=== PATIENT | male | born 2000 | race African-American/Black ===

== ENCOUNTER 2021-05-26 18:00 | Emergency (ER) | payer OTHER ==
[~2021-05-26] VITALS: Ht 177.8 cm; Wt 90.6 kg
[2021-05-26] MEDS ORDERED: ONDANSETRON PF 4 MG/2 ML VIAL. IVP ONE (18:45)
[2021-05-26] MEDS ORDERED: METOCLOPRAMIDE HCL 10 MG/2 ML VIAL. IVP ONE (18:45)
[2021-05-26] MEDS ORDERED: IV NORMAL SALINE 1,000ML 1,000 ML IV ONE (18:45)
[2021-05-26 19:08] VITALS: BP 115/74
[2021-05-26] MEDS ORDERED: ONDANSETRON 4MG ODT 4TABLET STARTPACK. PO ONE ×2 (19:37→19:45)
--- NOTE | 2021-05-26 19:44 | PHYS DOC ---
Past History Past Surgical History: No Surgical History (JORGE LUIS TOMLINSON APRN) Additional Smoking Information: vaper Alcohol Use: Occasionally (JORGE LUIS TOMLINSON APRN) Adult General Chief Complaint Chief Complaint: NAUSEA/VOMITING/DIARRHEA HPI HPI Patient is a 21-year-old male who presents emergency department complaining of nausea vomiting and diarrhea after what he suspects was a bad Polish food he ate last night. Patient denies seeing any blood in his stool or his vomitus, denies urinary tract infection type signs and symptoms, denies abdominal pain or discomfort at this time, denies recent fever or chills, denies chest pains shortness of breath cough or congestion. Patient denies other physical complaints or physical concerns. (JORGE LUIS TOMLINSON APRN) Review of Systems Review of Systems 14 body systems of review of systems have been reviewed. See HPI for pertinent positives and negative responses, otherwise all other systems are negative, nonpertinent or noncontributory. Constitutional: Negative except as outlined in HPI above. Skin: Negative except as outlined in HPI above. Eyes: Negative except as outlined in HPI above. HENT: Negative except as outlined in HPI above. Respiratory: Negative except as outlined in HPI above. Cardiovascular: Negative except as outlined in HPI above. GI: Negative except as outlined in HPI above. : Negative except as outlined in HPI above. Musculoskeletal: Negative except as outlined in HPI above. Integument: Negative except as outlined in HPI above. Neurologic: Negative except as outlined in HPI above. Endocrine: Negative except as outlined in HPI above. Lymphatic: Negative except as outlined in HPI above. Psychiatric: Negative except as outlined in HPI above. (JORGE LUIS TOMLINSON APRN) Current Medications Current Medications Current Medications Medications (Trade) Dose Ordered Sig/Linda Start Time Stop Time Status Last Admin Dose Admin Metoclopramide HCl (Reglan Vial) 10 mg 1X ONCE 05/26/21 18:45 05/26/21 18:46 DC 05/26/21 18:39 10 MG Ondansetron HCl (Starter Pack - Zofran Odt) 1 startpack STK-MED ONCE 05/26/21 19:37 05/26/21 19:40 DC Ondansetron HCl (Zofran) 8 mg 1X ONCE 05/26/21 18:45 05/26/21 18:46 DC 05/26/21 18:39 8 MG Sodium Chloride 1,000 ml @ 1,000 mls/hr 1X ONCE 05/26/21 18:45 05/26/21 19:40 DC 05/26/21 18:39 1,000 MLS/HR (JORGE LUIS TOMLINSON APRN) Allergies Allergies Allergies Coded Allergies Type Severity Reaction Last Updated Verified No Known Drug Allergies 05/26/21 No (JORGE LUIS TOMLINSON APRN) Physical Exam Physical Exam Constitutional: Well developed, well nourished, no acute distress, non-toxic appearance. 21-year-old male in no apparent distress. HENT: Normocephalic, atraumatic. Eyes: Conjunctiva normal, no discharge. Neck: Normal range of motion, no stridor. Cardiovascular: No cyanosis appreciated, distal cap refill less than 2 seconds. Lungs & Thorax: Patient is in no respiratory distress, no audible adventitious lung sounds appreciated. Abdomen: Nontender, no abnormalities noted. Skin: Warm, dry, no erythema, no rash. Back: No tenderness, no deformities. Extremities: No tenderness, no cyanosis, no clubbing, ROM intact, no edema. Neurologic: Alert and oriented X 3, normal motor function, normal sensory function, no focal deficits noted. Psychologic: Affect normal, judgement normal, mood normal. (JORGE LUIS TOMLINSON APRN) Current Patient Data Vital Signs Vital Signs Date Time Temp Pulse Resp B/P (MAP) Pulse Ox O2 Delivery O2 Flow Rate FiO2 05/26/21 19:08 67 18 115/74 (88) 98 Room Air 05/26/21 18:11 98.7 (JORGE LUIS TOMLINSON APRN) EKG EKG [] (JORGE LUIS TOMLINSON APRN) Radiology/Procedures Radiology/Procedures [] (JORGE LUIS TOMLINSON APRN) Heart Score C/O Chest Pain: No Risk Factors: Risk Factors: DM, Current or recent (<one month) smoker, HTN, HLP, family history of CAD, obesity. Risk Scores: Risk Factors: DM, Current or recent (<one month) smoker, HTN, HLP, family history of CAD, obesity. (JORGE LUIS TOMLINSON APRN) Course & Med Decision Making Course & Med Decision Making Pertinent Labs and Imaging studies reviewed. (See chart for details) 21-year-old male presents emergency department concerning nausea, vomiting, diarrhea after what he suspects was eating bad Polish last night for dinner. Patient's physical examination unremarkable, however patient's explanation of events is consistent with gastroenteritis. Will order 1 L normal saline, antinausea medication, will reevaluate the patient after period of time. After period of time, patient reports he feels much better, states he is ready to go home, denies any physical complaints or physical concerns at this time, patient is nontoxic in appearance and hemodynamically stable. ED attending physician Dr. Galvan discussed with patient discharge and discharge home instructions. Refer to Dr. Galvan's discharge note. (JORGE LUIS TOMLINSON APRN) Course & Med Decision Making Did not see or evaluate patient. Agree with GM's work-up and disposition per note. (ELSY GALVAN MD) Dragon Disclaimer Dragon Disclaimer This electronic medical record was generated, in whole or in part, using a voice recognition dictation system. (JORGE LUIS TOMLINSON APRN) Departure Departure: Impression: Primary Impression: Diarrhea Additional Impression: Nausea & vomiting Disposition: 01 HOME / SELF CARE / HOMELESS Condition: GOOD Patient Instructions: Nausea and Vomiting, Diarrhea Additional Instructions: Thank you for coming into the emergency department tonight and allowing us to take care of you. Please read the attached information carefully to go back over the things we discussed. Please be sure to stay hydrated. As we discussed, over the next couple of days please be sure to eat a light clear diet, with lots of fluids, some chicken soup and some dry crackers as we discussed and then in the next day or 2 advance your diet to normal. Please stay away from heavy, oily or spicy foods. You are given a work note for tomorrow to stay home, rest and become hydrated as not to spread any infectious processes. Please call your primary care physician in the morning to update on ED visit and set up a follow-up as soon as you can. Please come back with new or concerning symptoms as we discussed. Problem Qualifiers Primary Impression: Diarrhea Diarrhea type: unspecified type Qualified Codes: R19.7 - Diarrhea, unspecified Additional Impression: Nausea & vomiting Vomiting type: unspecified Vomiting Intractability: unspecified Qualified Codes: R11.2 - Nausea with vomiting, unspecified JORGE LUIS TOMLINSON APRN May 26, 2021 19:44 ELSY GALVAN MD May 26, 2021 21:52
== END 2021-05-26 19:39 | disposition home or self-care (01) ==
LOC: ER 18:00 → EDBD 18:00 → ER 19:39
DX: R19.7 Diarrhea, unspecified (principal); R11.2 Nausea with vomiting, unspecified
CPT/HCPCS: 96361; 96374; 96375; 99284; J2405; J2765; J7030; Q0162